=== PATIENT | male | born 1965 | race Caucasian/White ===

== ENCOUNTER 2017-12-22 13:30 | Inpatient (IN) | payer OTHER ==
[~2017-12-22] VITALS: Ht 170.2 cm; Wt 118.4 kg
[2017-12-22 13:58] LABS: microscopic required? NO
[2017-12-22 14:19] LABS: PLATELET COUNT 284 x10^3mcL (130-400)
[2017-12-22 14:21] LABS: RED CELL DISTRIBUTION WIDTH 16.9 % (11.5-14.5)
[2017-12-22 14:31] LABS: CALCIUM 8.3 mg/dL (8.5-10.1); CARBON DIOXIDE 27.1 mmol/L (21-32); CHLORIDE SERUM 104 mmol/L (98-107); GFR1 > 60 mL/min; GLUCOSE SERUM 252 mg/dL (74-106); POTASSIUM SERUM 4.4 mmol/L (3.5-5.1); SODIUM SERUM 140 mmol/L (136-145)
[2017-12-22 14:36] LABS: ALBUMIN 2.9 g/dL (3.4-5.0); ALKALINE PHOSPHATASE 190 U/L (46-116); ALT/SGPT 58 U/L (16-63); AST/SGOT 19 U/L (15-37); BILIRUBIN TOTAL 0.5 mg/dL (0.20-1.00); CHOLESTEROL 127 mg/dL (<200); CHOLESTEROL/HDL RATIO 2.9; HDL CHOLESTEROL 44 mg/dL (40-60); LIPASE 58 IU/L (73-393); TOTAL PROTEIN, SERUM 6.8 g/dL (6.4-8.2); TRIGLYCERIDES 59 mg/dL (<150)
[2017-12-22 14:42] LABS: UA SPECIFIC GRAVITY 1.015 (1.005-1.035); urine erythrocyte NEGATIVE (NEGATIVE)
[2017-12-22 14:49] LABS: T3 TOTAL 0.85 ng/mL
[2017-12-22 14:53] LABS: AMPHETAMINE QUAL UR NONE DETECTED (See below)
[2017-12-22 14:58] LABS: FREE T4 1.36 ng/dL (0.76-1.46); T4(THYROXINE) 8.2 ug/dL (4.7-13.3)
[2017-12-22] MEDS ORDERED: PROTONIX20 MG (15:28)
[2017-12-22 16:11] LABS: MAGNESIUM 1.6 mg/dL (1.8-2.4); PHOSPHOROUS 3.1 mg/dL (2.5-4.9)
[2017-12-22 16:56] VITALS: BP 123/73
[2017-12-22 21:40] VITALS: BP 126/73
[2017-12-23 01:39] VITALS: BP 126/73
[2017-12-23 04:53] LABS: BASOPHIL % 0.3 % (0-2); CARBON DIOXIDE 26.1 mmol/L (21-32); CHLORIDE SERUM 105 mmol/L (98-107); PLATELET COUNT 243 x10^3mcL (130-400); SODIUM SERUM 141 mmol/L (136-145)
[2017-12-23 04:54] LABS: CALCIUM 8.3 mg/dL (8.5-10.1); CREATININE SERUM 0.9 mg/dL (0.7-1.3); GFR1 > 60 mL/min; GLUCOSE SERUM 146 mg/dL (74-106); MAGNESIUM 1.6 mg/dL (1.8-2.4); PHOSPHOROUS 4.1 mg/dL (2.5-4.9)
[2017-12-23 05:00] LABS: RED CELL DISTRIBUTION WIDTH 16.7 % (11.5-14.5)
[2017-12-23 05:09] VITALS: BP 114/73
[2017-12-23 10:25] VITALS: BP 143/86
[2017-12-23 19:10] VITALS: BP 112/64
[2017-12-23 21:45] VITALS: BP 111/59
[2017-12-24 05:31] VITALS: BP 132/77
[2017-12-24 06:45] LABS: CALCIUM 8.5 mg/dL (8.5-10.1); CARBON DIOXIDE 28.4 mmol/L (21-32); CHLORIDE SERUM 104 mmol/L (98-107); GFR1 > 60 mL/min; GLUCOSE SERUM 158 mg/dL (74-106); MAGNESIUM 1.8 mg/dL (1.8-2.4); PHOSPHOROUS 4.3 mg/dL (2.5-4.9); POTASSIUM SERUM 4.4 mmol/L (3.5-5.1); SODIUM SERUM 140 mmol/L (136-145)
[2017-12-24 06:55] LABS: BASOPHIL % 0.5 % (0-2); PLATELET COUNT 251 x10^3mcL (130-400)
[2017-12-24 06:56] LABS: RED CELL DISTRIBUTION WIDTH 17.1 % (11.5-14.5)
[2017-12-24 08:00] VITALS: BP 139/83
[2017-12-24 08:49] VITALS: Ht 170.2 cm; Wt 118.4 kg
[2017-12-24 12:32] VITALS: BP 139/73
[2017-12-24] MEDS ORDERED: CARVEDILOL3.125 M1 PO (14:28)
[2017-12-24] MEDS ORDERED: LASIX40 MG PO (14:29)
[2017-12-24] MEDS ORDERED: GOOD SENSE ASPI81 M3 PO (14:31)
[2017-12-24] MEDS ORDERED: ZESTRIL5 MG PO (14:31)
[2017-12-24] MEDS ORDERED: LIPITOR10 MG PO (14:32)
[2017-12-24 15:02] VITALS: BP 139/73
[2017-12-24] MEDS ORDERED: AMIODARONE HCL100 MG (15:02)
== END 2017-12-24 19:38 | disposition home health service (06) | DRG 203 ==
LOC: EDBD 13:30 → ED 13:30 → DU 15:30 → EDBD 15:30 → DU 16:20
PROVIDERS: Family Medicine; Family Medicine Sports Medicine; Specialist
DX: M94.0 Chondrocostal junction syndrome [Tietze] (principal); N17.0 Acute kidney failure with tubular necrosis; I50.43 Acute on chronic combined systolic (congestive) and diastolic (congestive) heart failure; E44.0 Moderate protein-calorie malnutrition; I25.810 Atherosclerosis of coronary artery bypass graft(s) without angina pectoris; Z68.41 Body mass index [BMI] 40.0-44.9, adult; E11.51 Type 2 diabetes mellitus with diabetic peripheral angiopathy without gangrene; E11.65 Type 2 diabetes mellitus with hyperglycemia; G89.29 Other chronic pain; I11.0 Hypertensive heart disease with heart failure; I25.5 Ischemic cardiomyopathy; E83.42 Hypomagnesemia; E78.5 Hyperlipidemia, unspecified; F43.23 Adjustment disorder with mixed anxiety and depressed mood; Z53.29 Procedure and treatment not carried out because of patient's decision for other reasons; Z95.1 Presence of aortocoronary bypass graft; I25.2 Old myocardial infarction; Z95.810 Presence of automatic (implantable) cardiac defibrillator; Z87.891 Personal history of nicotine dependence
CPT/HCPCS: 36600; 83880; 84439; 97110-GP; C9113; J0132; J1940; J1956; J2060; J2270; J2405; J3475; J3490; J7030; J7620; Q0092